=== PATIENT | male | born 1995 | race Caucasian/White ===

== ENCOUNTER 2017-01-23 21:46 | Emergency (ER) | payer OTHER ==
[2017-01-23 21:55] VITALS: BP 140/82; PULSE 85; RESP 20; TEMP 97.6; O2SAT 98
[2017-01-23 22:38] LABS: APPEARANCE,URINE Slightly Cloudy; BILIRUBIN,URINE NEGATIVE (NEGATIVE); COLOR,URINE Dark yellow; GLUCOSE, URINE (UA) NEGATIVE (NEGATIVE); KETONES,URINE NEGATIVE (NEGATIVE); LEUKOCYTE ESTERASE ,URINE 1+ (NEGATIVE); NITRATE,URINE POSITIVE (NEGATIVE); OCCULT BLOOD,URINE 1+ (NEG-TRACE); PH,URINE 5.5; UROBILINOGEN,URINE 0.2 (0.2-1.0 EU)
[2017-01-23 22:56] LABS: WBC,URINE 80-100 (0-5AV/HPF)
[2017-01-23] MEDS ORDERED: CEFTRIAXONE 1 GM PDS IM ONE (23:01)
[2017-01-23] MEDS ORDERED: CEFTRIAXONE 1 GM PDS ONE (23:05)
[2017-01-23] MEDS ORDERED: LIDOCAINE HCL 1% MPF SOL ONE (23:07)
== END 2017-01-23 23:21 | disposition home or self-care (01) ==
LOC: ED 21:46
DX: N39.0 Urinary tract infection, site not specified (principal)
CPT/HCPCS: 81001; 87088; 96372; 99282; 99283; J0696; J2001